=== PATIENT | male | born 1980 | race Caucasian/White ===

== ENCOUNTER 2020-02-08 17:25 | Emergency (ER) | payer BC, SELFPAY ==
[2020-02-08 17:28] VITALS: BP 120/62; PULSE 73; RESP 18; TEMP 37.1; O2SAT 100; BMI 23.3
--- NOTE | 2020-02-08 18:36 | ED_ITS ---
HPI - Wound/Laceration General Chief Complaint: Wound/Laceration Stated Complaint: wound check Time Seen by Provider: 02/08/20 19:35 Source: patient Mode of arrival: ambulatory Limitations: no limitations History of Present Illness HPI narrative: 39-year-old male with no significant past medical history presents with a wound to his right peter. States this started off small a few weeks ago and progressively got worse. He presents because he now has pain in his groin, and the wound is not healing. He does not describe any immunosuppressive diseases or diabetes. He denies chest pain or pressure, palpitations, shortness of breath, abdominal pain, abdominal distention, dysuria, hematuria, loss of sensation to his extremities, fevers and chills. Related Data Previous Rx's Medication Instructions Recorded cephalexin [Keflex] 500 mg PO Q8H 10 Days #30 cap 02/08/20 doxycycline monohydrate 100 mg PO Q12H 10 Days #20 cap 02/08/20 ibuprofen 600 mg PO TID PRN #60 tab 02/08/20 Allergies Allergy/AdvReac Type Severity Reaction Status Date / Time No Known Allergies Allergy Verified 02/08/20 17:33 [No Known Allergies*] Review of Systems Review of Systems: Constitutional: No Fever, No Chills ENT/Mouth: No Ear Pain, No Hoarseness, No sore throat Eyes: No Eye Pain, No Swelling, No Redness, No Foreign Body Cardiovascular: No Chest Pain, No SOB Respiratory: No Cough, No Dyspnea Gastrointestinal: No Nausea, No Vomiting, No Diarrhea, No abdominal Pain Genitourinary: No Dysuria, No Hematuria Musculoskeletal: positive right lower leg pain, No Myalgias, No Joint Swelling Skin: Wound to right lower leg, No Skin lacerations, No rash Neuro: No Weakness, No Numbness, No Paresthesias, No Loss of Consciousness, No Dizziness, No Headache Psych: No Anxiety/Panic, No Depression Heme/Lymph: no easy bruising, no Lymphadenopathy Endocrine: No Polyuria, No Polydipsia Yes all other systems are reviewed and are negative [facility] Past Medical History Attestation statement: The following information was validated with the patient. Social History Social History Advance Directives: No Advance Directives Information Provided: Yes Physical Exam Vital Signs: Vital Signs: Last Vital Signs Temp 98.7 F 02/08/20 17:28 Pulse 73 02/08/20 17:28 Resp 18 02/08/20 17:28 BP 120/62 02/08/20 17:28 Pulse Ox 100 02/08/20 17:28 Body Mass Index 23.3 Appearance: Alert. Oriented X3. Mild distress. Afebrile, appears nontoxic. Eyes: Pupils equal, round and reactive to light. ENT: Pharynx normal. Neck: Normal inspection. Neck supple. CVS: Normal heart rate and rhythm. Pulses normal. Respiratory: No respiratory distress. Breath sounds normal. Abdomen: Soft and nontender. Skin: 3 cm wound with 2 cm circumferential erythema, right inguinal lymphadenopathy and tenderness to palpation, otherwise all other Skin warm and dry. Normal skin color. Normal skin turgor. Extremities: No lower extremity edema. Brisk capillary refill, pulses equal to all extremities, full range of motion to all extremities Neuro: No motor deficit. No sensory deficit. Skin: Other: Course Course Course Narrative: 39-year-old male with no significant past medical history presents with a wound that has progressively worsened over the past several weeks. Does not recall how this wound occurred stated this started out small pinpoint and then progressively enlarged. He does appear altered but denies illicit drug use, alcohol and marijuana use. Plan of care is for CBC, Chem 7, x-ray to exclude bone involvement. We will give some IV Zosyn as he does have some phlebitis and inguinal lymphadenopathy with tenderness. White count is 13.4, x-rays negative for bone involvement, gas or abscess. Lactic acid is negative. Plan of care is to discharge home with Keflex and doxycycline. He does understand that if the wound gets worse that he must return for further care. Patient verbalized understanding of and agrees with plan of care discharge home. Reevaluation(s) Reevaluation #1: Lab values still pending. This [employer] started IV fluids at this time Time: 19:38 MDM - Wound/Laceration Differential Diagnosis Differential diagnosis: Likely abscess Medical Records Attestation: I reviewed the patient's medical records. Lab Data Attestation: I reviewed the patient's lab results. Result diagrams: 02/08/20 19:22 02/08/20 19:22 Labs: Lab Results 12/14/20 12/14/20 12/14/20 Range/Units 19:22 19:22 19:22 WBC 13.4 H (4.8-10.8) X10*3/uL RBC 4.63 (4.60-5.80) X10*6/uL Hgb 14.1 (14.0-18.0) g/dl Hct 43.0 (42-52) % MCV 92.9 (80-98) fL MCH 30.5 (27.0-33.0) pg MCHC 32.8 (31.0-36.0) g/dl RDW 12.9 (11.0-16.0) % Plt Count 382 (160-400) X10*3/uL MPV 10.2 (9.4-12.4) fL Immature Gran % (Auto) 0.2 (0.0-0.4) % Neut % (Auto) 58.1 (45-73) % Lymph % (Auto) 21.4 (20-40) % [place] % (Auto) 9.8 (2-11) % Eos % (Auto) 9.8 H (0-4) % Baso % (Auto) 0.7 (0-2) % Lymph # (Auto) 2.9 (1.2-4.9) X10*3/uL [place] # (Auto) 1.3 H (0.1-1.2) X10*3/uL Eos # (Auto) 1.3 H (0.0-0.4) X10*3/uL Baso # (Auto) 0.1 (0.0-0.2) X10*3/uL Abs Immat Gran (auto) 0.03 (0.00-0.03) X10*3/uL Absolute Neuts (auto) 7.8 (2.0-8.3) X10*3/uL Absolute Nucleated RBC 0.000 (0.0-0.012) X10*3/uL Nucleated RBC % (auto) 0.0 (0.0-0.2) /100WBC Sodium 142 (135-145) mmol/L Potassium 4.7 (3.3-5.1) mmol/l Chloride 105 (96-108) mmol/L Carbon Dioxide 29 (22-29) mmol/L Anion Gap 13 (12-20) BUN 15 (9-16) mg/dL Creatinine 0.94 (0.5-1.4) mg/dL Estim Creat Clear Calc 93.5 Estimated GFR > 60 Random Glucose 91 (60-115) mg/dL Lactic Acid 1.0 (0.5-2.0) mmol/L Calcium 9.0 (8.4-10.2) mg/dL Imaging Data Right tibia x-ray: Attestation: I personally reviewed and interpreted this imaging study as follows: Radiologist's impression: EXAMINATION: XR TIBIA AND FIBULA, RIGHT CLINICAL INFORMATION: Wound COMPARISON: None TECHNIQUE: AP and lateral views of the right tibia and fibula were obtained. FINDINGS: The bones and soft tissues are normal. No soft tissue gas or radiopaque foreign body. No fracture. No osseous lesions. XR/XR tibia fibula RT 2V IMPRESSION: Normal right tibia and fibula. Discharge Plan Discharge Clinical Impression: Cellulitis Qualifiers: Site of cellulitis: extremity Site of cellulitis of extremity: lower extremity Laterality: right Qualified Code(s): L03.115 - Cellulitis of right lower limb Patient Disposition: Home, Self-Care Instructions: Cellulitis (ED) Additional Instructions: You were evaluated for wound on your right lower leg. Please take doxycycline and Keflex as directed. You need both of these medications to fight this infection. For pain management please alternate Tylenol and Motrin. If symptoms get worse or you develop fevers, chills, nausea, vomiting, or any other concerning symptoms please return to the emergency department immediately. Thank you for choosing this emergency department for evaluation. Please follow-up with primary care physician as needed. Return to the emergency department for any new, concerning, or worsening symptoms. Prescriptions: New cephalexin [Keflex] 500 mg capsule 500 mg PO Q8H 10 Days Qty: 30 RF: 0 doxycycline monohydrate 100 mg capsule 100 mg PO Q12H 10 Days Qty: 20 RF: 0 ibuprofen 600 mg tablet 600 mg PO TID PRN (Reason: fever or pain) Qty: 60 RF: 0 Stand Alone Forms: Work/School Release Interventions: ED Discharge Assessment Last Done: 02/08/20 20:51 Discharge Date/Time: 02/08/20 20:52
--- NOTE | 2020-02-08 19:24 | PC.NURSE ---
pT RESTING QUIETLY WITH C/O PAIN TO RIGHT LOWER LEG, 10/04. AWARE. HL PLACED TO [facility], LABS DRAWN TO LAB. PT AWAITING FURTHER ORDERS. PT ALERT, RESPIRATIONS EASY, N/L. SKIN W/D. PT HAS A LARGE RED AREA TO RIGHT LOWER LEG WITH SOME DRAINAGE. BC X 2 AND LACTIC ACID OBTAINED. WILL CONTINUE TO MONITOR PT.
[2020-02-08 19:35] LABS: MANUAL DIFF FLAG NO
[2020-02-08 19:36] LABS: Basophils Absolute Auto 0.1 X10*3/uL (0.0-0.2); Basophils Percent Auto 0.7 % (0-2); Eosinophils Absolute Auto 1.3 X10*3/uL (0.0-0.4); Eosinophils Percent Auto 9.8 % (0-4); Hemoglobin 14.1 g/dl (14.0-18.0); Imm Gran Abs Auto 0.03 X10*3/uL (0.00-0.03); Imm Gran Pct Auto 0.2 % (0.0-0.4); Lymphocytes Absolute Auto 2.9 X10*3/uL (1.2-4.9); Lymphocytes Percent Auto 21.4 % (20-40); Mean Corpuscular HGB Conc 32.8 g/dl (31.0-36.0); Mean Corpuscular Hemoglobin 30.5 pg (27.0-33.0); Mean Corpuscular Volume 92.9 fL (80-98); Mean Platelet Volume 10.2 fL (9.4-12.4); Monocytes Absolute Auto 1.3 X10*3/uL (0.1-1.2); Monocytes Percent Auto 9.8 % (2-11); Neutrophils Absolute Auto 7.8 X10*3/uL (2.0-8.3); Neutrophils Percent Auto 58.1 % (45-73); Platelet Count 382 X10*3/uL (160-400); Red Blood Count 4.63 X10*6/uL (4.60-5.80); Red Cell Distribution Width 12.9 % (11.0-16.0); White Blood Count 13.4 X10*3/uL (4.8-10.8)
[2020-02-08 19:54] LABS: Anion Gap 13 (12-20); Blood Urea Nitrogen 15 mg/dL (9-16); Carbon Dioxide 29 mmol/L (22-29); Chloride 105 mmol/L (96-108); Creatinine Clr Calc Pharmacy 93.5; Estimated Glomerular Filt Rate > 60; Glucose Random 91 mg/dL (60-115); Potassium 4.7 mmol/l (3.3-5.1); Sodium 142 mmol/L (135-145)
[2020-02-08] MEDS: 0.9 % Sodium Chloride 1,000 ML 999 ML IVCONT (19:57)
[2020-02-08] MEDS: Piperacillin Sodium/Tazobactam 3.375 GM in 0.9 % Sodium Chloride 50 ML IV (19:58)
[2020-02-08] MEDS: Acetaminophen 325 MG TABLET 650 MG PO (20:03)
[2020-02-08] MEDS: Ketorolac Tromethamine 30 MG/ML VIAL IVPUSH (20:03)
== END 2020-02-08 20:52 | disposition home or self-care (01) ==
PROVIDERS: Nurse Practitioner Family; Emergency Provider Internal Medicine; PCP Nurse Practitioner Family
DX: L03.115 Cellulitis of right lower limb (principal); R10.30 Lower abdominal pain, unspecified
CPT/HCPCS: 36415; 73590; 80048; 83605; 85025; 87040; 96361; 96374; 96375; 99283; 99284; J1885; J2543

== ENCOUNTER 2020-02-16 16:32 | Emergency (ER) | payer BC, SELFPAY ==
[2020-02-16 17:01] VITALS: BP 136/63; PULSE 67; RESP 65; TEMP 36.9; O2SAT 99; BMI 23.3
== END 2020-02-16 20:10 | disposition left against medical advice (07) ==
PROVIDERS: Emergency Provider Emergency Medicine; PCP Nurse Practitioner Family
DX: M79.606 Pain in leg, unspecified (principal)
CPT/HCPCS: 99282

== ENCOUNTER 2020-02-23 16:30 | Observation (INO) | payer BC, SELFPAY ==
--- NOTE | 2020-02-23 | XR_ITS ---
EXAMINATION: XR TIBIA AND FIBULA, RIGHT CLINICAL INFORMATION: Infection. COMPARISON: None TECHNIQUE: AP and lateral views of the right tibia and fibula were obtained. FINDINGS: The bones and soft tissues are normal. Knee joint and the ankle joint are unremarkable. No fracture. No osseous lesions. No abnormal periosteal reaction. No radiographic evidence for osteomyelitis. There is no foreign body in the soft tissue. There is no air in the soft tissue. XR/XR tibia fibula RT 2V IMPRESSION: Normal right tibia and fibula.
[2020-02-23 16:43] VITALS: BP 135/71; PULSE 67; RESP 16; TEMP 37; O2SAT 100; BMI 23.3
[2020-02-23 20:26] LABS: Basophils Absolute Auto 0.1 X10*3/uL (0.0-0.2); Basophils Percent Auto 0.7 % (0-2); Eosinophils Absolute Auto 0.6 X10*3/uL (0.0-0.4); Eosinophils Percent Auto 6.6 % (0-4); Hematocrit 43.1 % (42-52); Hemoglobin 14.2 g/dl (14.0-18.0); Imm Gran Abs Auto 0.04 X10*3/uL (0.00-0.03); Imm Gran Pct Auto 0.4 % (0.0-0.4); Lymphocytes Absolute Auto 2.9 X10*3/uL (1.2-4.9); Lymphocytes Percent Auto 31.9 % (20-40); MANUAL DIFF FLAG NO; Mean Corpuscular HGB Conc 32.9 g/dl (31.0-36.0); Mean Corpuscular Hemoglobin 30.3 pg (27.0-33.0); Mean Corpuscular Volume 91.9 fL (80-98); Mean Platelet Volume 9.7 fL (9.4-12.4); Monocytes Absolute Auto 0.6 X10*3/uL (0.1-1.2); Monocytes Percent Auto 6.2 % (2-11); Neutrophils Absolute Auto 4.9 X10*3/uL (2.0-8.3); Neutrophils Percent Auto 54.2 % (45-73); Platelet Count 387 X10*3/uL (160-400); Red Blood Count 4.69 X10*6/uL (4.60-5.80); Red Cell Distribution Width 12.4 % (11.0-16.0); White Blood Count 9.1 X10*3/uL (4.8-10.8)
[2020-02-23 20:52] LABS: Lactic Acid 1.4 mmol/L (0.5-2.0)
[2020-02-23 20:55] LABS: Anion Gap 11 (12-20); Blood Urea Nitrogen 13 mg/dL (9-16); Calcium 8.8 mg/dL (8.4-10.2); Carbon Dioxide 28 mmol/L (22-29); Chloride 104 mmol/L (96-108); Creatinine Clr Calc Pharmacy 101.1; Estimated Glomerular Filt Rate > 60; Glucose Random 86 mg/dL (60-115); Potassium 4.1 mmol/l (3.3-5.1); Sodium 139 mmol/L (135-145)
--- NOTE | 2020-02-23 21:27 | ED_ITS ---
HPI - Extremity Problem General Chief complaint: Extremity Problem Stated complaint: leg infection Time Seen by Provider: 02/23/20 21:17 Source: patient Mode of arrival: ambulatory Limitations: no limitations History of Present Illness HPI Narrative: Patient comes emergency room complaining of cellulitis over his right peter. Patient was seen here on February 07, he was prescribed a course of antibiotics of cephalexin and doxycycline. Patient states that the lesion got worse throughout the course of antibiotics and he actually developed a 2nd abscess that just started. Patient states before antibiotics, he was not draining pus from the injury, now he is. Patient complaining of subjective fever and chills. Patient states he was compliant with his antibiotic regimen and did not skip any doses and finished it completely. Patient concerned that the 2nd abscess is starting just as the 1st abscess did. Patient complaining of worsening pain. Patient denies any trauma to the area, denies IV drug use. Related Data Home Medications Medication Instructions Recorded Confirmed ibuprofen 1 tab PO TID PRN 02/23/20 02/23/20 Allergies Allergy/AdvReac Type Severity Reaction Status Date / Time No Known Allergies Allergy Verified 02/08/20 17:33 [No Known Allergies*] Review of Systems Review of Systems: Constitutional : No Weight loss, complaining of chills, subjective fever No Night Sweats, No Fatigue, No Malaise ENT/Mouth : No Hearing loss, No Ear Pain, No Nasal Congestion, No Sinus Pain, No Hoarseness, No sore throat, No Rhinorrhea, No Swallowing Difficulty Eyes: No Eye Pain, No Swelling, No Redness, No Foreign Body, No Discharge, No Vision Changes Cardiovascular : No Chest Pain, No SOB, No Dyspnea on Exertion, No Orthopnea, No Edema, No Palpitations Respiratory : No Cough, No Sputum, No Wheezing, No Smoke Exposure, No Dyspnea Gastrointestinal : No Nausea, No Vomiting, No Diarrhea, No Constipation, No abdominal Pain, No Hematochezia, No Melena Genitourinary : no irregular bleeding, No Dysuria, No Urinary Frequency, No Hematuria, No Urinary Incontinence, No Urgency, No Flank Pain, No Urinary Flow Changes, No Hesitancy Musculoskeletal : No joint pain, No Myalgias, No Joint Swelling Skin : Worsening abscess on the right peter, now and 2nd abscess is developing Neuro : No Weakness, No Numbness, No Paresthesias, No Loss of Consciousness, No Dizziness, No Headache Psych : No Anxiety/Panic, No Depression, No SI/HI/AH/VH, No Social Issues, Heme/Lymph: No Bruising, No Bleeding,No Lymphadenopathy Endocrine : No Polyuria, No Polydipsia, No Temperature Intolerance PMF Past Medical History Medical History No known health problems Social History Social History Advance Directives: No Advance Directives Information Provided: Yes Physical Exam Vital Signs: Vital Signs: Last Vital Signs Temp 98.6 F 02/23/20 16:43 Pulse 67 02/23/20 16:43 Resp 16 02/23/20 16:43 BP 135/71 02/23/20 16:43 Pulse Ox 100 02/23/20 16:43 Body Mass Index 23.3 Appearance: Alert. Oriented X3. No acute distress. Eyes: Pupils equal, round and reactive to light. ENT: Pharynx normal. Neck: Normal inspection. Neck supple. No lymph nodes noted. No crepitus CVS: Normal heart rate and rhythm. Pulses normal. Normal S1 and S2 Respiratory: No respiratory distress. Breath sounds normal. No Wheezing. No rales Abdomen: Soft and nontender. No rigidity. No distention. good BS x4 Skin: Comparing the skin lesion from previous notes, the cellulitis did get worse, now draining pus, the ulcer enlarged, there is now 2nd developing ulcer above the ulcer that appeared 1st. Extremities: No lower extremity edema. No lower extremity edema. No Lacerations. No Rash Neuro: Oriented X 3. No motor deficit. No sensory deficit. Moving all extermities. No slurred speech. Course Course Course Narrative: Sepsis is not suspected at this time. However, patient failed outpatient treatment with 2 antibiotics, the infection is getting worse and is spreading. I discussed the patient with our hospitalist, patient being admitted MDM - Extremity (Nontraumatic) Lab Data Result diagrams: 02/23/20 20:19 02/23/20 20:19 Labs: Lab Results 02/23/20 02/23/20 02/23/20 Range/Units 20:19 20:19 20:19 WBC 9.1 (4.8-10.8) X10*3/uL RBC 4.69 (4.60-5.80) X10*6/uL Hgb 14.2 (14.0-18.0) g/dl Hct 43.1 (42-52) % MCV 91.9 (80-98) fL MCH 30.3 (27.0-33.0) pg MCHC 32.9 (31.0-36.0) g/dl RDW 12.4 (11.0-16.0) % Plt Count 387 (160-400) X10*3/uL MPV 9.7 (9.4-12.4) fL Immature Gran % (Auto) 0.4 (0.0-0.4) % Neut % (Auto) 54.2 (45-73) % Lymph % (Auto) 31.9 (20-40) % [place] % (Auto) 6.2 (2-11) % Eos % (Auto) 6.6 H (0-4) % Baso % (Auto) 0.7 (0-2) % Lymph # (Auto) 2.9 (1.2-4.9) X10*3/uL [place] # (Auto) 0.6 (0.1-1.2) X10*3/uL Eos # (Auto) 0.6 H (0.0-0.4) X10*3/uL Baso # (Auto) 0.1 (0.0-0.2) X10*3/uL Abs Immat Gran (auto) 0.04 H (0.00-0.03) X10*3/uL Absolute Neuts (auto) 4.9 (2.0-8.3) X10*3/uL Absolute Nucleated RBC 0.000 (0.0-0.012) X10*3/uL Nucleated RBC % (auto) 0.0 (0.0-0.2) /100WBC Sodium 139 (135-145) mmol/L Potassium 4.1 (3.3-5.1) mmol/l Chloride 104 (96-108) mmol/L Carbon Dioxide 28 (22-29) mmol/L Anion Gap 11 L (12-20) BUN 13 (9-16) mg/dL Creatinine 0.87 (0.5-1.4) mg/dL Estim Creat Clear Calc 101.1 Estimated GFR > 60 Random Glucose 86 (60-115) mg/dL Lactic Acid 1.4 (0.5-2.0) mmol/L Calcium 8.8 (8.4-10.2) mg/dL Imaging Data Tibia fibula x-ray: Radiologist's impression: The bones and soft tissues are normal. Knee joint and the ankle joint are unremarkable. No fracture. No osseous lesions. No abnormal periosteal reaction. No radiographic evidence for osteomyelitis. There is no foreign body in the soft tissue. There is no air in the soft tissue. XR/XR tibia fibula RT 2V IMPRESSION: Normal right tibia and fibula. Discharge Plan Discharge Clinical Impression: Cellulitis Qualifiers: Site of cellulitis: extremity Site of cellulitis of extremity: lower extremity Laterality: right Qualified Code(s): L03.115 - Cellulitis of right lower limb Patient Disposition: Admitted As Inpatient
[2020-02-23 22:00] VITALS: BP 130/73; PULSE 60; RESP 18; O2SAT 98
--- NOTE | 2020-02-23 22:01 | P.HPHOSP_ITS ---
History of Present Illness Date of Service: 02/23/20 Chief Complaint: Leg wound 39 year old man presented with worsening leg wound. Symptoms began several weeks ago as a red area and got larger. Seen in ED on 02/07 and was given dose of IV antibiotics and then DC with 10 day course of Keflex and Doxycycline. St ates took the entire course and wound is getting worse. Now has another small area superior to original wound. Is intermittently painful and draining pus. No fevers or chills. No trauma to area and no falls or scrapes. Works in warehouse. No history of recurrent skin and soft tissue infections. Review of Systems Review of Systems: Yes all other systems are reviewed and are negative Constitutional: Comments: No fevers/chills. Appetite OK. Cardiovascular: Comments: No chest pain Respiratory: Comments: No dyspnea or cough Gastrointestinal: Comments: No abd pain, nausea, diarrhea Musculoskeletal: Comments: Leg pain with wound Psychiatric: Comments: Normal affect, not anxious [facility] Medical History No known health problems Functional capacity: independent ambulation Pertinent family history: No family history of recurrent skin/soft tissue infections Family history: reviewed and not pertinent Social History (Updated 02/23/20 @ 22:07 by Miquel Peter MD) Smoking Status: Never smoker Use of substances other than those prescribed or required for medical reasons: No Advance Directives: No Advance Directives Information Provided: Yes Meds Allergies Allergy/AdvReac Type Severity Reaction Status Date / Time No Known Allergies Allergy Verified 02/08/20 17:33 [No Known Allergies*] Home Medications Medication Instructions Recorded Confirmed Type ibuprofen 1 tab PO TID PRN 02/23/20 02/23/20 History Physical Exam Vital Signs and Narrative: Vital Signs: Last Vital Signs Temp 98.6 F 02/23/20 16:43 Pulse 67 02/23/20 16:43 Resp 16 02/23/20 16:43 BP 135/71 02/23/20 16:43 Pulse Ox 100 02/23/20 16:43 Body Mass Index 23.3 Const: General: cooperative, healthy appearing, comfortable and no acute distress HENMT: Head: Yes normal to inspection Mouth: Normal oral and palatal mucosa present Eyes: General: appearance normal, both eyes and all related structures Neck: Yes normal visual inspection, Yes no lymphadenopathy and Yes supple Chest: Chest palpation & inspection: normal inspection of the chest Resp: Effort & Inspection: normal respiratory effort and able to speak in complete sentences Auscultation: clear to auscultation bilaterally Cardio: Rate: regular rate Rhythm: regular rhythm Heart sounds: S1 normal heart sound present and S2 normal heart sound present GI: Other: nontender Palpation (GI): Soft to palpation Auscultation: normal bowel sounds Skin: Other: right lower leg anterior peter, area of ulceration with purulence and surrounding erythema. Smaller erythematous area superior to that one. Lesions: lesion noted Results Labs CBC and Chem 7: 02/23/20 20:19 02/23/20 20:19 Labs: Laboratory Results - last 24 hr 02/23/20 02/23/20 02/23/20 20:19 20:19 20:19 MCV 91.9 MCH 30.3 MCHC 32.9 RDW 12.4 Plt Count 387 MPV 9.7 Immature Gran % (Auto) 0.4 Neut % (Auto) 54.2 Lymph % (Auto) 31.9 [place] % (Auto) 6.2 Eos % (Auto) 6.6 H Baso % (Auto) 0.7 Lymph # (Auto) 2.9 [place] # (Auto) 0.6 Eos # (Auto) 0.6 H Baso # (Auto) 0.1 Abs Immat Gran (auto) 0.04 H Absolute Neuts (auto) 4.9 Absolute Nucleated RBC 0.000 Nucleated RBC % (auto) 0.0 Anion Gap 11 L Estim Creat Clear Calc 101.1 Estimated GFR > 60 Random Glucose 86 Lactic Acid 1.4 Calcium 8.8 Imaging Radiologist's Impressions: Impressions Tibia/Fibula X-Ray 02/23/20 00:00 IMPRESSION: Normal right tibia and fibula. Assessment and Plan (1) Cellulitis: Qualifiers: Laterality: right Site of cellulitis: extremity Site of cellulitis of extremity: lower extremity Qualified Code(s): L03.115 - Cellulitis of right lower limb Status: Acute 39 year old man with leg wound and cellulitis worsening after outpatient course of Keflex and Doxyccline. Cellulitis and wound He is not septic. No findings on xray of lower leg. Started on Zosyn and Vancomycin in ED-continue both for now. ID consult with Dr Bhakta ordered. Tylenol scheduled q8 and oxycodone 5mg q6h prn breakthrough pain. DVT proph SC Lovenox ordered Code status Full code.
[2020-02-23] MEDS: Piperacillin Sodium/Tazobactam 3.375 GM in 0.9 % Sodium Chloride 50 ML IV (23:01)
[2020-02-23 23:10] LABS: COVID-19 Test Negative (Negative)
[2020-02-23] MEDS: vancomycin HCL 1,000 MG in 0.9 % Sodium Chloride 250 ML 270 MG IV (23:39)
[2020-02-23] MEDS: Acetaminophen 325 MG TABLET 650 MG PO (23:44)
[2020-02-24] VITALS: BP 119/72; PULSE 50; RESP 16; TEMP 36.3; O2SAT 100
[2020-02-24] MEDS: oxyCODONE HCl Immed Release 5 MG TABLET PO ×4 (00:32→21:12)
[2020-02-24] MEDS: 0.9 % Sodium Chloride Flush 3 ML SYRINGE IVFLUSH ×4 (00:33→21:14)
[2020-02-24] MEDS: Piperacillin Sodium/Tazobactam 3.375 GM in 0.9 % Sodium Chloride 50 ML IV ×4 (05:41→23:50)
[2020-02-24 06:45] LABS: MANUAL DIFF FLAG NO
[2020-02-24 07:00] LABS: Basophils Absolute Auto 0.1 X10*3/uL (0.0-0.2); Basophils Percent Auto 0.7 % (0-2); Eosinophils Absolute Auto 0.8 X10*3/uL (0.0-0.4); Eosinophils Percent Auto 9.8 % (0-4); Hematocrit 38.8 % (42-52); Hemoglobin 12.6 g/dl (14.0-18.0); Imm Gran Abs Auto 0.03 X10*3/uL (0.00-0.03); Imm Gran Pct Auto 0.3 % (0.0-0.4); Lymphocytes Absolute Auto 3.3 X10*3/uL (1.2-4.9); Lymphocytes Percent Auto 38.8 % (20-40); Mean Corpuscular HGB Conc 32.5 g/dl (31.0-36.0); Mean Corpuscular Hemoglobin 29.9 pg (27.0-33.0); Mean Corpuscular Volume 92.2 fL (80-98); Mean Platelet Volume 10.1 fL (9.4-12.4); Monocytes Absolute Auto 0.8 X10*3/uL (0.1-1.2); Monocytes Percent Auto 9.5 % (2-11); Neutrophils Absolute Auto 3.5 X10*3/uL (2.0-8.3); Neutrophils Percent Auto 40.9 % (45-73); Platelet Count 355 X10*3/uL (160-400); Red Blood Count 4.21 X10*6/uL (4.60-5.80); Red Cell Distribution Width 12.4 % (11.0-16.0); White Blood Count 8.6 X10*3/uL (4.8-10.8)
[2020-02-24 07:16] LABS: Anion Gap 12 (12-20); Blood Urea Nitrogen 14 mg/dL (9-16); Calcium 8.3 mg/dL (8.4-10.2); Carbon Dioxide 27 mmol/L (22-29); Chloride 105 mmol/L (96-108); Creatinine Clr Calc Pharmacy 99.9; Estimated Glomerular Filt Rate > 60; Glucose Random 84 mg/dL (60-115); Potassium 4.2 mmol/l (3.3-5.1); Sodium 140 mmol/L (135-145)
[2020-02-24 07:42] VITALS: BP 119/66; PULSE 51; RESP 20; TEMP 36.4; O2SAT 99
[2020-02-24] MEDS: Acetaminophen 325 MG TABLET 650 MG PO ×3 (07:45→21:13)
--- NOTE | 2020-02-24 08:33 | MHC.CM.PN ---
PATIENT IS FULLY INDEPENDENT WITH ALLS CAR IS IN LOT. PATIENT MAY REQUIRE A RETURN TO WORK NOTE. \HE IS WILLING TO COMPLETE A HCP, ASSIGNING HIS FATHER (YVETTE) AGENT. COPY NOW IN CHART. CASE MANAGEMENT FOLLOWING FOR ANY DISCHARGE NEEDS. LEWIS 02/23 IN CHART
[2020-02-24] MEDS: vancomycin HCL 1,000 MG in 0.9 % Sodium Chloride 250 ML 270 MG IV ×2 (09:20→21:13)
[2020-02-24 11:22] VITALS: BP 98/52; PULSE 55; RESP 20; TEMP 36.6; O2SAT 98
--- NOTE | 2020-02-24 13:36 | MHC.CM.PN ---
NO PLAN FOR DISCHARGE. IV ABX TREATMENT CASE MANAGEMENT FOLLOWING
[2020-02-24 15:37] VITALS: BP 112/60; PULSE 58; RESP 18; TEMP 36.8; O2SAT 98
--- NOTE | 2020-02-24 15:55 | HO.PM.IMPN ---
Subjective Subjective Date of Service: 02/24/20 Interval History: Patient being followed for left leg wound and cellulitis, since admission no fever chills no other acute issues patient denies nausea vomiting. Review of Systems General no headache, no dizziness, no fever chills. CVS no chest pain, no palpitation. Respiratory no cough, no sputum production, no respiratory distress. Gastrointestinal no nausea, no vomiting, no abdominal pain Physical Exam Vital Signs: Vital Signs: Last Vital Signs Temp 98.2 F 02/24/20 15:37 Pulse 58 02/24/20 15:37 Resp 18 02/24/20 15:37 BP 112/60 02/24/20 15:37 Pulse Ox 98 02/24/20 15:37 Body Mass Index 23.3 General patient resting comfortably in no acute distress. Neck is supple no JVD. CVS regular rate rhythm, Respiratory lungs clear to auscultation, no respiratory distress Gastrointestinal abdomen soft, nontender, bowel sounds audible Extremities right lower extremity 2 areas of ulceration with mild erythema, with no surrounding induration, or drainage Neuro nonfocal patient moving all 4 extremity speech clear. Skin no rash Objective Data Current Medications Generic Name Dose Route Start Last Admin Trade Name Freq PRN Reason Stop Dose Admin Acetaminophen 650 mg 02/23/20 23:53 02/24/20 15:01 Acetaminophen 325 Mg Tablet PO 650 mg TID SERGEI Administration Enoxaparin Sodium 40 mg 02/24/20 01:00 02/24/20 00:34 Enoxaparin Sodium 40 Mg/0.4 Ml Syringe SUBCUT Not Given Q24H SERGEI Vancomycin HCl 1,000 mg/ 270 mls @ 270 mls/hr 02/24/20 10:00 02/24/20 10:26 Sodium Chloride IV Infused Q12H SERGEI Infusion Piperacillin Sod/Tazobactam 50 mls @ 100 mls/hr 02/24/20 06:00 02/24/20 12:11 Sod 3.375 gm/ Sodium Chloride IV Infused RQ6H SERGEI Infusion Oxycodone HCl 5 mg 02/23/20 23:53 02/24/20 15:00 Oxycodone Hcl Immed Release 5 Mg Tablet PO 5 mg Q6H PRN Administration Pain, Severe (Pain Scale 7-10) Pharmacy Consult 1 each 02/23/20 21:24 Consult Rx Vancomycin Dosing MISCELLANE DAILY PRN Consult order Pharmacy Consult 1 each 02/23/20 21:25 Consult Rx Perform Med Rec MISCELLANE ONCE PRN Consult order Sodium Chloride 3 ml 02/24/20 00:00 02/24/20 15:02 0.9 % Sodium Chloride Flush 3 Ml Syringe IVFLUSH 3 ml QSHIFT SERGEI Administration Labs CBC & Chem 7: 02/24/20 06:13 02/24/20 06:13 Assessment and Plan (1) Cellulitis: Status: Acute Assessment and Plan: 39 year old man with leg wound and cellulitis worsening after outpatient course of Keflex and Doxyccline. Right lower extremity Cellulitis and wound no sepsis No fevers no chills normal WBC, No findings on xray of lower leg. Continue iv Zosyn and Vancomycin day 1 Follow blood cultures if negative will discharge patient on by mouth Augmentin case discussed with ID, continue Tylenol scheduled and oxycodone 5mg q6h prn breakthrough pain. DVT proph SC Lovenox Code status Full code.
--- NOTE | 2020-02-24 16:32 | W.PM.IDCN ---
History of Present Illness Data of Consult Service Date: 02/24/20 Primary Care Provider: Perico Mccall, [facility]- HPI Reason for consult: reddened right leg He presents to hospital with right lower extremity redness and swelling for two weeks He has no fever or chills He has injected heroin into leg area He says he was give po Keflex and Doxycycline on 02/07 and no improvement He claims area draining pus Review of Systems Review of Systems: Yes all other systems are reviewed and are negative [facility] Past Medical History Medical History No known health problems Functional capacity: independent ambulation Family History Family history: reviewed and not pertinent Social History Social History Smoking Status: Never smoker Use of substances other than those prescribed or required for medical reasons: No Advance Directives: No Advance Directives Information Provided: Yes service: No Current occupational status: employed Meds Allergies Allergy/AdvReac Type Severity Reaction Status Date / Time No Known Allergies Allergy Verified 02/08/20 17:33 [No Known Allergies*] Home Medications Medication Instructions Recorded Confirmed Type ibuprofen 1 tab PO TID PRN 02/23/20 02/23/20 History Physical Exam Vital Signs: Vital Signs: Last Vital Signs Temp 98.2 F 02/24/20 15:37 Pulse 58 02/24/20 15:37 Resp 18 02/24/20 15:37 BP 112/60 02/24/20 15:37 Pulse Ox 98 02/24/20 15:37 Body Mass Index 23.3 Const: General: cooperative HENMT: Head: Yes normal to inspection Mouth: Normal oral and palatal mucosa present Resp: Effort & Inspection: normal respiratory effort Cardio: Rate: regular rate Rhythm: regular rhythm GI: Inspection: Yes normal to inspection Skin: General skin exam: no rashes or lesions noted Extrem: Other: as above picture right leg Assessment and Plan (1) Cellulitis: Qualifiers: Laterality: right Site of cellulitis: extremity Site of cellulitis of extremity: lower extremity Qualified Code(s): L03.115 - Cellulitis of right lower limb Problem details: Really minor abrasion type areas on right peter with no purulence or fever or systemic toxicities Has trauma to area Status: Acute Stop IV antibiotics in am and give po Augmentin 875 mg po bid for a week Local Bacitracin and wash area daily,no scrubbing Results Labs CBC & Chem 7: 02/24/20 06:13 02/24/20 06:13 Labs: Short CBC 02/23/20 02/24/20 Range/Units 20:19 06:13 WBC 9.1 8.6 (4.8-10.8) X10*3/uL Hgb 14.2 12.6 L (14.0-18.0) g/dl Hct 43.1 38.8 L (42-52) % Plt Count 387 355 (160-400) X10*3/uL BMP 02/23/20 02/24/20 20:19 06:13 Sodium 139 140 Potassium 4.1 4.2 Chloride 104 105 Carbon Dioxide 28 27 BUN 13 14 Creatinine 0.87 0.88 Calcium 8.8 8.3 L
[2020-02-24 23:25] VITALS: BP 107/56; PULSE 54; RESP 18; TEMP 36.8; O2SAT 96
[2020-02-25] MEDS: Piperacillin Sodium/Tazobactam 3.375 GM in 0.9 % Sodium Chloride 50 ML IV ×2 (06:10→10:24)
[2020-02-25] MEDS: oxyCODONE HCl Immed Release 5 MG TABLET PO (06:14)
[2020-02-25] MEDS: Acetaminophen 325 MG TABLET 650 MG PO (06:15)
[2020-02-25] MEDS: 0.9 % Sodium Chloride Flush 3 ML SYRINGE IVFLUSH (07:20)
[2020-02-25 07:21] VITALS: BP 104/58; PULSE 63; RESP 15; TEMP 36.3; O2SAT 98
[2020-02-25 09:27] LABS: Vancomycin Trough 7.7 mcg/mL (10.0-20.0)
--- NOTE | 2020-02-25 10:57 | MHC.CM.PN ---
PATIENT IS DISCHARGED HOME - SELF CARE. RN AWARE OF PLAN. CAR [facility] ON [facility].
--- NOTE | 2020-02-25 12:24 | P.DS_ITS ---
DS: Providers Provider Date of admission: 02/23/20 22:00 Primary care physician: GENET Cortes- Consults: 02/23/20 23:53 Consult to Infectious Diseases Routine Consulting Provider: Yaquelin Bhakta Reason for consultation: lower leg wound and cellulitis, failed outpatient antibiotics Has provider been notified: No DS: Diagnosis Discharge Diagnosis (1) Cellulitis: Status: Acute DS: Medications Discharge Medications Home Medications: Previous Rx's Medication Instructions Recorded amoxicillin-pot clavulanate 1 tab PO BID #14 tab 02/25/20 [Augmentin] DS: Summary Hospital Course Hospital Course: History of presenting illness Chief Complaint: Leg wound 39 year old man presented with worsening leg wound. Symptoms began several weeks ago as a red area and got larger. Seen in ED on 02/07 and was given dose of IV antibiotics and then DC with 10 day course of Keflex and Doxycycline. States took the entire course and wound is getting worse. Now has another small area superior to original wound. Is intermittently painful and draining pus. No fevers or chills. No trauma to area and no falls or scrapes. Works in [id number]. No history of recurrent skin and soft tissue infections. Hospital course 39 year old man with leg wound and cellulitis worsening after outpatient course of Keflex and Doxyccline. Right lower extremity Cellulitis and wound, no sepsis Patient admitted to medical floor and treated with IV vancomycin and Zosyn, patient had No fevers, no chills, had normal WBC, blood culture showed no growth, patient evaluated by Infectious Disease she is recommending by mouth Augmentin 875 b.i.d. for 7 days,patient has been advised to keep leg elevated, apply bacitracin ointment to wound twice daily and to use Tylenol for pain. Time Spent with Patient Time attestation: Total time spent providing and/or coordinating discharge services: Physical Exam Vital Signs: Vital Signs: Last Vital Signs Temp 97.4 F 02/25/20 07:21 Pulse 63 02/25/20 07:21 Resp 15 02/25/20 07:21 BP 104/58 L 02/25/20 07:21 Pulse Ox 98 02/25/20 07:21 Body Mass Index 23.3 General patient resting comfortably in no acute distress. Neck is supple no JVD. CVS regular rate rhythm, Respiratory lungs clear to auscultation, no respiratory distress Gastrointestinal abdomen soft, nontender, bowel sounds audible. Extremities right lower extremity with 2 areas of ulceration with no significant redness, no induration or drainage. Neuro nonfocal. Skin no rash DS: Data Data Completed and Pending Labs on day of discharge: 02/23/20 XR tibia fibula RT 2V Stat 02/23/20 20:19 BMP [Basic Metabolic Panel] Stat CBC W/AUTO DIFF [Complete Blood Count Auto Diff] Stat Lactic Acid Stat 02/23/20 21:24 Consult Rx Vancomycin Dosing 1 each MISCELLANE DAILY PRN Piperacillin Sodium/Tazobactam [Zosyn] 3.375 gm 0.9 % Sodium Chloride [Ns] 50 ml IV ONCE vancomycin HCL 1,000 mg 0.9 % Sodium Chloride [Ns] 250 ml IV ONCE 02/23/20 21:25 Consult Rx Perform Med Rec 1 each MISCELLANE ONCE PRN 02/23/20 21:52 Transfer Order Routine 02/23/20 21:53 Code Status Routine 02/23/20 22:41 COVID-19 ID NOW (Sommer) Stat 02/23/20 22:50 vancomycin HCL 1,000 mg .ROUTE .STK-MED ONE 02/23/20 22:51 Piperacillin Sodium/Tazobactam [Zosyn] 3.375 gm IV .STK-MED ONE 02/23/20 23:33 Acetaminophen [Tylenol] 650 mg PO ONCE ONE 02/23/20 23:53 Acetaminophen [Tylenol] 650 mg PO TID oxyCODONE HCl Immed Release [Roxicodone] 5 mg PO Q6H PRN 02/23/20 23:53 Ambulate QSHIFT WHILE AWAKE IV insert/maintain Q4HR Intake and Output QSHIFTE Vital Signs QSHIFT 02/24/20 00:00 0.9 % Sodium Chloride Flush [NS Flush] 3 ml IVFLUSH QSHIFT 02/24/20 01:00 Enoxaparin Sodium [Lovenox] 40 mg SUBCUT Q24H 02/24/20 05:30 Piperacillin Sodium/Tazobactam [Zosyn] 3.375 gm IV .STK-MED ONE 02/24/20 06:00 Piperacillin Sodium/Tazobactam [Zosyn] 3.375 gm 0.9 % Sodium Chloride [Ns] 50 ml IV RQ6H 02/24/20 06:13 Basic Metabolic Panel Routine Complete Blood Count Auto Diff Routine 02/24/20 09:11 vancomycin HCL 1,000 mg .ROUTE .STK-MED ONE 02/24/20 10:00 vancomycin HCL 1,000 mg 0.9 % Sodium Chloride [Ns] 250 ml IV Q12H 02/24/20 11:29 Piperacillin Sodium/Tazobactam [Zosyn] 3.375 gm IV .STK-MED ONE 02/24/20 17:33 Piperacillin Sodium/Tazobactam [Zosyn] 3.375 gm IV .STK-MED ONE 02/24/20 21:01 vancomycin HCL 1,000 mg .ROUTE .STK-MED ONE 02/24/20 21:08 vancomycin HCL 1,000 mg .ROUTE .STK-MED ONE 02/24/20 23:37 Piperacillin Sodium/Tazobactam [Zosyn] 3.375 gm IV .STK-MED ONE 02/25/20 05:56 Piperacillin Sodium/Tazobactam [Zosyn] 3.375 gm IV .STK-MED ONE 02/25/20 08:46 Vancomycin Trough Stat 02/25/20 10:20 Piperacillin Sodium/Tazobactam [Zosyn] 3.375 gm IV .STK-MED ONE Laboratory Last Values WBC 8.6 X10*3/uL (4.8-10.8) 02/24/20 06:13 RBC 4.21 X10*6/uL (4.60-5.80) L 02/24/20 06:13 Hgb 12.6 g/dl (14.0-18.0) L 02/24/20 06:13 Hct 38.8 % (42-52) L 02/24/20 06:13 MCV 92.2 fL (80-98) 02/24/20 06:13 MCH 29.9 pg (27.0-33.0) 02/24/20 06:13 MCHC 32.5 g/dl (31.0-36.0) 02/24/20 06:13 RDW 12.4 % (11.0-16.0) 02/24/20 06:13 Plt Count 355 X10*3/uL (160-400) 02/24/20 06:13 MPV 10.1 fL (9.4-12.4) 02/24/20 06:13 Immature Gran % (Auto) 0.3 % (0.0-0.4) 02/24/20 06:13 Neut % (Auto) 40.9 % (45-73) L 02/24/20 06:13 Lymph % (Auto) 38.8 % (20-40) 02/24/20 06:13 Prentiss % (Auto) 9.5 % (2-11) 02/24/20 06:13 Eos % (Auto) 9.8 % (0-4) H 02/24/20 06:13 Baso % (Auto) 0.7 % (0-2) 02/24/20 06:13 Lymph # (Auto) 3.3 X10*3/uL (1.2-4.9) 02/24/20 06:13 Prentiss # (Auto) 0.8 X10*3/uL (0.1-1.2) 02/24/20 06:13 Eos # (Auto) 0.8 X10*3/uL (0.0-0.4) H 02/24/20 06:13 Baso # (Auto) 0.1 X10*3/uL (0.0-0.2) 02/24/20 06:13 Abs Immat Gran (auto) 0.03 X10*3/uL (0.00-0.03) 02/24/20 06:13 Absolute Neuts (auto) 3.5 X10*3/uL (2.0-8.3) 02/24/20 06:13 Absolute Nucleated RBC 0.000 X10*3/uL (0.0-0.012) 02/24/20 06:13 Nucleated RBC % (auto) 0.0 /100WBC (0.0-0.2) 02/24/20 06:13 Sodium 140 mmol/L (135-145) 02/24/20 06:13 Potassium 4.2 mmol/l (3.3-5.1) 02/24/20 06:13 Chloride 105 mmol/L (96-108) 02/24/20 06:13 Carbon Dioxide 27 mmol/L (22-29) 02/24/20 06:13 Anion Gap 12 (02-13) 02/24/20 06:13 BUN 14 mg/dL (9-16) 02/24/20 06:13 Creatinine 0.88 mg/dL (0.5-1.4) 02/24/20 06:13 Estim Creat Clear Calc 99.9 02/24/20 06:13 Estimated GFR > 60 02/24/20 06:13 Random Glucose 84 mg/dL (60-115) 02/24/20 06:13 Lactic Acid 1.4 mmol/L (0.5-2.0) 02/23/20 20:19 Calcium 8.3 mg/dL (8.4-10.2) L 02/24/20 06:13 Vancomycin Trough 7.7 mcg/mL (10.0-20.0) L 02/25/20 08:46 COVID-19 (CHELSY) Negative (Negative) 02/23/20 22:41 COVID-19 Clin Com See Note 02/23/20 22:41 Preliminary micro results at discharge 02/23/20 22:41 Blood Culture - Preliminary Blood - Venous No growth after 24 hours. 02/23/20 22:41 Blood Culture - Preliminary Blood - Venous No growth after 24 hours. 02/23/20 20:20 Blood Culture - Preliminary Blood - Venous No growth after 24 hours. 02/23/20 20:19 Blood Culture - Preliminary Blood - Venous No growth after 24 hours. Discharge Plan Discharge Patient Disposition: Home, Self-Care Referrals: Perico Mccall, [employer] [facility] [Primary Care Provider] - Discharge Medications: New amoxicillin-pot clavulanate [Augmentin] 875-125 mg tablet 1 tab PO BID Qty: 14 RF: 0 Discontinued ibuprofen 600 mg tablet 1 tab PO TID PRN (Reason: fever) RF: 0 Discharge Orders: Discharge Order (Routine); Ordered 02/25/20 Ordered By: Rupal Marti Diet: regular diet Activity on Discharge: As tolerated Discharge Date/Time: 02/25/20 11:21 Visit Report Forms: Patient Portal Discharge page Care Plan Goals: Take Tylenol 500 mg every 6 hours as needed for pain apply bacitracin ointment to right leg wounds twice daily, keep leg elevated Health Concerns: Right leg wound healing. Plan of Treatment: Follow-up with primary care physician
== END 2020-02-25 11:21 | disposition home or self-care (01) ==
LOC: HO.ED 22:02 → HO.S3 23:28
PROVIDERS: Admitting Provider Internal Medicine; Emergency Provider Emergency Medicine; PCP Nurse Practitioner Family; Visit Provider Hospitalist
DX: L03.115 Cellulitis of right lower limb (principal); R60.0 Localized edema; Z20.828 Contact with and (suspected) exposure to other viral communicable diseases; Z79.1 Long term (current) use of non-steroidal anti-inflammatories (NSAID); Z79.899 Other long term (current) drug therapy
CPT/HCPCS: 36415; 73590; 80048; 80202; 83605; 85025; 87040; 87635; 96365; 96366; 96367; 96372; 99218; 99285; J2543; J3370

== ENCOUNTER 2022-06-11 22:39 | Emergency (ER) | payer OTHER, SELFPAY ==
--- NOTE | ~2022-06-11 | XR_ITS ---
EXAMINATION: XR ELBOW, LEFT CLINICAL INFORMATION: Pain COMPARISON: None available. TECHNIQUE: AP, lateral, and oblique views of the left elbow. FINDINGS: Osseous alignment is anatomic. No acute fracture is seen. Mild dorsal soft tissue swelling. No appreciable joint effusion. XR/XR elbow LT min 3V IMPRESSION: Mild dorsal soft tissue swelling without acute osseous findings.
--- NOTE | ~2022-06-11 | XR_ITS ---
EXAMINATION: XR HAND, LEFT CLINICAL INFORMATION: Left hand pain COMPARISON: None available. TECHNIQUE: PA, lateral, and oblique views of the left hand. FINDINGS: The bones and soft tissues are normal. No fracture. Alignment is anatomic. Joint spaces are maintained. No erosions or soft tissue calcifications. XR/XR hand LT min 3V IMPRESSION: Normal left hand.
[2022-06-11 23:14] VITALS: BP 100/62; BP 103/66; PULSE 69; PULSE 72; RESP 18; TEMP 36.9; O2SAT 98; BMI 26.6
--- NOTE | 2022-06-12 01:06 | ED_ITS ---
HPI - Extremity Problem General Chief complaint: Extremity Injury, Upper Stated complaint: fall r elbow pain Time Seen by Provider: 06/12/22 00:20 Source: patient and EMS Mode of arrival: EMS Limitations: no limitations History of Present Illness HPI Narrative: Patient comes emergency room from [facility]. Earlier today, patient was sitting in a chair and fell backwards. Patient states that he stretched out his hand backwards to break the fall. Patient complaining of pain around his left thumb area and around his left elbow. Patient states that he did not hit his head, did not lose consciousness. Patient denies any other injury Related Data Previous Rx's Medication Instructions Recorded amoxicillin 875 mg-potassium 1 tab PO BID #14 tabs 02/25/20 clavulanate 125 mg tablet (Augmentin) ibuprofen 600 mg tablet 600 mg PO Q8H PRN fever or pain 06/12/22 #10 tabs Allergies Allergy/AdvReac Type Severity Reaction Status Date / Time No Known Allergies Allergy Verified 06/11/22 23:20 [No Known Allergies*] Review of Systems Review of Systems: Constitutional : No Weight loss, No Fever, No Chills, No Night Sweats, No Fatigue, No Malaise ENT/Mouth : No Hearing loss, No Ear Pain, No Nasal Congestion, No Sinus Pain, No Hoarseness, No sore throat, No Rhinorrhea, No Swallowing Difficulty Eyes: No Eye Pain, No Swelling, No Redness, No Foreign Body, No Discharge, No Vision Changes Cardiovascular : No Chest Pain, No SOB, No Dyspnea on Exertion, No Orthopnea, No Edema, No Palpitations Respiratory : No Cough, No Sputum, No Wheezing, No Smoke Exposure, No Dyspnea Gastrointestinal : No Nausea, No Vomiting, No Diarrhea, No Constipation, No abdominal Pain, No Hematochezia, No Melena Genitourinary : no irregular bleeding, No Dysuria, No Urinary Frequency, No Hematuria, No Urinary Incontinence, No Urgency, No Flank Pain, No Urinary Flow Changes, No Hesitancy Musculoskeletal : Pain to palpation over the left thumb and left elbow Skin : No Skin Lesions, No rash Neuro : No Weakness, No Numbness, No Paresthesias, No Loss of Consciousness, No Dizziness, No Headache Psych : No Anxiety/Panic, No Depression, No SI/HI/AH/VH, No Social Issues, Heme/Lymph: No Bruising, No Bleeding,No Lymphadenopathy Endocrine : No Polyuria, No Polydipsia, No Temperature Intolerance [facility] Past Medical History Medical History Cocaine use Heroin use No known health problems Suicidal ideation Social History Social History Advance Directives: No Advance Directives Information Provided: Yes service: No Current occupational status: employed Physical Exam Vital Signs: Vital Signs: Last Vital Signs Temp 98.4 F 06/11/22 23:14 Pulse 69 06/11/22 23:14 Resp 18 06/11/22 23:14 BP 103/66 06/11/22 23:14 Pulse Ox 98 06/11/22 23:14 O2 Del Method Room Air 06/11/22 23:14 BMI result Body Mass Index 26.6 Const: Other: Appearance: Alert. Oriented X3. No acute distress. Eyes: Pupils equal, round and reactive to light. ENT: Pharynx normal. Neck: Normal inspection. Neck supple. No lymph nodes noted. No crepitus CVS: Normal heart rate and rhythm. Pulses normal. Normal S1 and S2 Respiratory: No respiratory distress. Breath sounds normal. No Wheezing. No rales Abdomen: Soft and nontender. No rigidity. No distention. Skin: Skin warm and dry. Normal skin color. Normal skin turgor. Extremities: No lower extremity edema. Patient has pain to palpation over the snuffbox on the left hand.? Patient is able to flex and extend all fingers but hurts doing so.? No wrist pain.? Left elbow is slightly swollen.? Patient able to flex and extend.? Small effusion present. Neuro: Oriented X 3. No motor deficit. No sensory deficit. Moving all ext remities. No slurred speech. CN 2 through 12 grossly intact Psych: calm, cooperative, normal affect Medical Decision Making Medical Decision Making MDM Narrative: -my interpretation of x-rays: patient's hand x-ray and elbow x-ray do not show any acute abnormality. No fracture were seen. -patient was given p.o. ibuprofen. -patient was provided with a thumb spica, instructed to follow-up with orthopedics Differential Diagnosis Differential Diagnoses: The differential diagnosis associated with the presentation includes (Thumb sprain, thumb contusion, scaphoid fracture,. Elbow contusion versus fracture, joint effusion) Radiology Impression Discussion of test interpretation with radiology: I have reviewed the radiologist's reading. Radiologist Impression: The bones and soft tissues are normal. No fracture. Alignment is anatomic. Joint spaces are maintained. No erosions or soft tissue calcifications.? XR/XR hand LT min 3V IMPRESSION: Normal left hand. FINDINGS: Osseous alignment is anatomic. No acute fracture is seen. Mild dorsal soft tissue swelling. No appreciable joint effusion.? XR/XR elbow LT min 3V IMPRESSION: Mild dorsal soft tissue swelling without acute osseous findings. Discharge Plan Discharge Clinical Impression: Contusion of left thumb, Contusion of left elbow Patient Disposition: Home, Self-Care Instructions: Contusion in Adults (ED) Additional Instructions: Please follow-up with your primary care physician tomorrow. If you have any worsening or new symptoms, please return to the emergency room or call 911 Prescriptions: New ibuprofen 600 mg tablet 600 mg PO Q8H PRN (Reason: fever or pain) Qty: 10 0RF No Action amoxicillin-pot clavulanate [Augmentin] 875-125 mg tablet 1 tab PO BID Qty: 14 0RF Referrals: Elina Mishra MD [Physician] - 06/13/22
[2022-06-12] MEDS: Ibuprofen 600 MG TABLET PO (01:44)
[2022-06-12 02:48] VITALS: RESP 20
== END 2022-06-12 02:51 | disposition home or self-care (01) ==
PROVIDERS: Emergency Provider Emergency Medicine
DX: S60.012A Contusion of left thumb without damage to nail, initial encounter (principal); S50.02XA Contusion of left elbow, initial encounter; W07.XXXA Fall from chair, initial encounter; Y93.89 Activity, other specified; Y92.199 Unspecified place in other specified residential institution as the place of occurrence of the external cause; Y99.9 Unspecified external cause status
CPT/HCPCS: 29130; 73080; 73130; 99283; 99284

== ENCOUNTER 2024-02-12 16:49 | Inpatient (IN) | payer OTHER, SELFPAY ==
--- NOTE | ~2024-02-12 | XR_ITS ---
EXAMINATION: XR CHEST CLINICAL INFORMATION: Dyspnea. COMPARISON: None available. TECHNIQUE: Frontal view of the chest was obtained. FINDINGS: The lungs are adequately expanded. Mild asymmetric elevation of the right hemidiaphragm. Faint hazy opacification of the right lung base. No additional dense focal consolidative process. No evidence of pleural effusion, pulmonary edema, or pneumothorax. The cardiomediastinal silhouette is within normal limits. No acute osseous abnormalities. XR/XR chest 1V IMPRESSION: Faint hazy opacification of the right lung base may represent subsegmental atelectasis although early infectious/inflammatory processes could have a similar appearance in the appropriate clinical setting. No additional dense focal consolidative process. Electronically signed by: James Hauser DO 02/12/2024 07:15 PM [facility]
[2024-02-12 16:59] VITALS: BP 104/61; BP 134/80; PULSE 113; PULSE 87; RESP 14; O2SAT 86; O2SAT 94; BMI 31.7
--- NOTE | 2024-02-12 17:12 | ECG_ITS ---
Test Reason : OD Blood Pressure : / mmHG Vent. Rate : 076 BPM Atrial Rate : 076 BPM P-R Int : 144 ms QRS Dur : 096 ms QT Int : 416 ms P-R-T Axes : 017 056 049 degrees QTc Int : 468 ms Normal sinus rhythm Normal ECG No previous ECGs available Referred By: Kay Aguillon Electronically Signed By:DEE DEE YUAN
[2024-02-12 17:18] VITALS: O2SAT 96
[2024-02-12] MEDS: Ondansetron ODT 4 MG TAB.RAPDIS TRANSLINGU (17:21)
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
[2024-02-12 17:42] VITALS: RESP 13; O2SAT 93
[2024-02-12 17:46] LABS: MANUAL DIFF FLAG NO
[2024-02-12 17:50] LABS: Basophils Percent Auto 0.2 % (0-2); Eosinophils Absolute Auto 0.3 X10*3/uL (0.0-0.4); Eosinophils Percent Auto 1.5 % (0-4); Hematocrit 41.4 % (42.0-52.0); Hemoglobin 14.2 g/dl (14.0-18.0); Imm Gran Abs Auto 0.09 X10*3/uL (0.00-0.03); Imm Gran Pct Auto 0.5 % (0.0-0.4); Lymphocytes Absolute Auto 1.5 X10*3/uL (1.2-4.9); Lymphocytes Percent Auto 8.4 % (20-40); Mean Corpuscular HGB Conc 34.3 g/dl (31.0-36.0); Mean Corpuscular Hemoglobin 30.1 pg (27.0-33.0); Mean Corpuscular Volume 87.9 fL (80.0-98.0); Mean Platelet Volume 10.2 fL (9.4-12.4); Monocytes Absolute Auto 0.7 X10*3/uL (0.1-1.2); Neutrophils Absolute Auto 15.1 x10*3/uL (2.0-8.3); Neutrophils Percent Auto 85.4 % (45-73); Platelet Count 357 X10*3/uL (160-400); Red Blood Count 4.71 X10*6/uL (4.60-5.80); Red Cell Distribution Width 12.4 % (11.0-16.0); White Blood Count 17.7 X10*3/uL (4.8-10.8)
[2024-02-12 17:50] LABS: Carbon Monoxide Refer to POC result
[2024-02-12 17:50] LABS: Carbon Monoxide POC 4.2 %
[2024-02-12 18:07] LABS: Lactic Acid 1.7 mmol/L (0.5-2.0)
[2024-02-12 18:08] LABS: Alanine Aminotransferase 20 U/L (0-40); Albumin Level 4.1 g/dL (3.5-5.0); Alkaline Phosphatase 73 U/L (39-117); Anion Gap 10 (12-20); Aspartate Amino Transferase 20 U/L (5-37); Bilirubin Direct 0.2 mg/dL (0.0-0.5); Bilirubin Total 0.7 mg/dL (0.0-1.0); Blood Urea Nitrogen 19 mg/dL (9-16); Calcium 9.5 mg/dL (8.4-10.2); Carbon Dioxide 28 mmol/L (22-29); Chloride 107 mmol/L (96-108); Creatinine Clr Calc Pharmacy 102.3; Estimated Glomerular Filt Rate > 60; Glucose Random 132 mg/dL (60-115); Magnesium 2.5 mg/dL (1.6-2.6); Potassium 3.1 mmol/L (3.3-5.1); Sodium 142 mmol/L (135-145); Total Protein 7.7 g/dL (6.5-8.0)
[2024-02-12] MEDS: Piperacillin Sodium/Tazobactam 3.375 GM in 0.9 % Sodium Chloride 50 ML IV (18:08)
[2024-02-12 18:13] LABS: B Type Natriuretic Peptide 13 pg/mL (<100)
[2024-02-12 18:15] LABS: Troponin-I High Sensitivity < 2.7 ng/L (<3.5-35.0)
[2024-02-12 18:29] VITALS: BP 92/52; PULSE 62; RESP 14; O2SAT 95
[2024-02-12] MEDS: Potassium Chloride ER 20 MEQ TAB.ER.PRT 40 MEQ PO (18:30)
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
--- NOTE | 2024-02-12 18:42 | PC.NURSE ---
Security to bedside for exchange underwriting consultant. Security took custody of Pts belongings.
--- NOTE | 2024-02-12 18:43 | PC.NURSE ---
Pt reports Methadone received at [facility] in [place].
[2024-02-12 18:46] LABS: Influenza A PCR NEGATIVE (Negative); Influenza B PCR NEGATIVE (Negative); Resp Syncy Virus RNA Qual PCR NEGATIVE (Negative); SARS COV2 PCR INHOUSE NEGATIVE (Negative)
[2024-02-12] MEDS: Lactated Ringers 1,000 ML 999 ML IV ×2 (18:48→20:55)
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
--- NOTE | 2024-02-12 19:36 | PHA.MEDREC ---
Addendum entered by Jorge Mccallum 02/12/24 19:38: reviewed Original Note: Pharmacy Consult ? Medication Reconciliation Pharmacy has completed the medication reconciliation. Spoke with patient and he was a little out of it nodding in and out but he stated he is only taking Methadone and stated he is on 22mg of it and claims his last dose was today.
[2024-02-12 20:53] VITALS: BP 101/65; PULSE 66; RESP 16; TEMP 36.7; O2SAT 98
[2024-02-12 21:15] VITALS: BMI 30.9
[2024-02-12 21:20] VITALS: BP 112/60; PULSE 71; RESP 18; TEMP 37; O2SAT 94
[2024-02-12] MEDS: Ampicillin Sodium/Sulbactam Na 3 GM in 0.9 % Sodium Chloride 100 ML IV (23:41)
[2024-02-12] MEDS: 0.9 % Sodium Chloride Flush 3 ML SYRINGE IVFLUSH (23:44)
[2024-02-13 03:51] VITALS: BP 100/54; PULSE 64; RESP 18; TEMP 36.5; O2SAT 94
[2024-02-13] MEDS: Ampicillin Sodium/Sulbactam Na 3 GM in 0.9 % Sodium Chloride 100 ML IV ×4 (05:27→23:17)
[2024-02-13 06:07] LABS: MANUAL DIFF FLAG NO
[2024-02-13 06:27] LABS: Anion Gap 9 (12-20); Blood Urea Nitrogen 15 mg/dL (9-16); Calcium 8.3 mg/dL (8.4-10.2); Carbon Dioxide 27 mmol/L (22-29); Chloride 109 mmol/L (96-108); Creatinine Clr Calc Pharmacy 114.1; Estimated Glomerular Filt Rate > 60; Glucose Random 87 mg/dL (60-115); Potassium 4.2 mmol/L (3.3-5.1); Sodium 141 mmol/L (135-145)
[2024-02-13 06:31] LABS: Amphetamine Screen Urine Not Detected (Not Detect); Barbiturates, Urine Not Detected (Not Detect); Benzodiazepines Screen Urine Not Detected (Not Detect); Buprenorphine Scr Not Detected (Not Detect); Cannabinoid Screen Urine Not Detected (Not Detect); Cocaine Screen Urine POSITIVE (Not Detect); Fentanyl, urine POSITIVE (Not Detect); Methadone Screen, Urine Positive (Not Detect); Opiate Screen Urine POSITIVE (Not Detect); Oxycodone Screen Urine Not Detected (Not Detect); Phencyclidine Screen Urine Not Detected (Not Detect)
[2024-02-13 07:02] LABS: Basophils Absolute Auto 0.1 X10*3/uL (0.0-0.2); Basophils Percent Auto 0.3 % (0-2); Eosinophils Absolute Auto 0.3 X10*3/uL (0.0-0.4); Eosinophils Percent Auto 1.3 % (0-4); Hematocrit 36.8 % (42.0-52.0); Hemoglobin 12.1 g/dl (14.0-18.0); Imm Gran Abs Auto 0.09 X10*3/uL (0.00-0.03); Imm Gran Pct Auto 0.4 % (0.0-0.4); Lymphocytes Absolute Auto 2.4 X10*3/uL (1.2-4.9); Lymphocytes Percent Auto 11.9 % (20-40); Mean Corpuscular HGB Conc 32.9 g/dl (31.0-36.0); Mean Corpuscular Hemoglobin 29.6 pg (27.0-33.0); Mean Platelet Volume 10.7 fL (9.4-12.4); Monocytes Absolute Auto 1.1 X10*3/uL (0.1-1.2); Monocytes Percent Auto 5.5 % (2-11); Neutrophils Absolute Auto 16.2 x10*3/uL (2.0-8.3); Neutrophils Percent Auto 80.6 % (45-73); Platelet Count 292 X10*3/uL (160-400); Red Blood Count 4.09 X10*6/uL (4.60-5.80); Red Cell Distribution Width 12.8 % (11.0-16.0); White Blood Count 20.1 X10*3/uL (4.8-10.8)
[2024-02-13 07:13] VITALS: BP 93/53; PULSE 65; RESP 16; TEMP 37.2; O2SAT 92
--- NOTE | 2024-02-13 07:32 | HO.PM.IMPN ---
Subjective Subjective Date of Service: 02/13/24 Interval History: Being followed for aspiration pneumonia and acute toxic metabolic encephalopathy after accidental heroin overdose. Patient awake alert this morning denies fever, no chills, no nausea, no vomiting, no shortness of breath, has been coughing brown-colored phlegm. Review of Systems All other system reviewed and are negative. Physical Exam Vital Signs: Vital Signs: Last Vital Signs Temp 98.9 F 02/13/24 07:13 Pulse 65 02/13/24 07:13 Resp 16 02/13/24 07:13 BP 93/53 L 02/13/24 07:13 Pulse Ox 92 02/13/24 07:13 O2 Del Method Room Air 02/13/24 07:13 O2 Flow Rate 4 02/12/24 20:53 BMI result Body Mass Index 30.9 Const: Other: General resting comfortably in no acute distress. Anicteric sclera Neck no JVD. CVS regular rate rhythm, Respiratory lungs clear to auscultation, no respiratory distress, no rhonchi. Gastrointestinal abdomen soft, non tender, bowel sounds audible Extremities no edema. Neuro non focal Skin no rash Appropriate affect Objective Data Active Medications Acetaminophen (Acetaminophen 325 Mg Tablet) 650 mg PO Q6H PRN PRN Reason: Pain, Mild (Pain Scale 1-3), fever or headache Calcium Carbonate (Calcium Carbonate 750 Mg Tab.Chew) 750 mg PO Q4H PRN PRN Reason: Heartburn Ampicillin Sodium/Sulbactam (Sodium 3 gm/ Sodium Chloride) 100 mls @ 200 mls/hr IV Q6H [facility] Last Infusion: 02/13/24 05:57 Dose: Infused Documented By: AMA Magnesium Hydroxide (Milk Of Magnesia 30 Ml Oral.Susp) 30 ml PO DAILY PRN PRN Reason: Constipation Melatonin (Melatonin 3 Mg Tablet) 6 mg PO BEDTIME PRN PRN Reason: Insomnia Ondansetron HCl (Ondansetron Hcl 4 Mg/2 Ml Vial) 4 mg IVPUSH Q8H PRN PRN Reason: Nausea and Vomiting Sodium Chloride (0.9 % Sodium Chloride Flush 3 Ml Syringe) 3 ml IVFLUSH QSHIFT [facility] Last Admin: 02/12/24 23:44 Dose: 3 ml Documented By: AMA Labs 02/13/24 05:26 02/13/24 05:26 Labs: Laboratory Results - last 24 hr 02/12/24 02/12/24 02/12/24 17:36 17:43 18:01 MCV 87.9 MCH 30.1 MCHC 34.3 RDW 12.4 Plt Count 357 MPV 10.2 Immature Gran % (Auto) 0.5 H Neut % (Auto) 85.4 H Lymph % (Auto) 8.4 L [place] % (Auto) 4.0 Eos % (Auto) 1.5 Baso % (Auto) 0.2 Lymph # (Auto) 1.5 [place] # (Auto) 0.7 Eos # (Auto) 0.3 Baso # (Auto) 0.0 Abs Immat Gran (auto) 0.09 H Absolute Neuts (auto) 15.1 H Absolute Nucleated RBC 0.000 Nucleated RBC % (auto) 0.0 Carboxyhemoglobin % 4.2 Anion Gap 10 L Estim Creat Clear Calc 102.3 Estimated GFR > 60 Random Glucose 132 H Lactic Acid 1.7 Calcium 9.5 D Magnesium 2.5 Total Bilirubin 0.7 Direct Bilirubin 0.2 AST 20 ALT 20 Alkaline Phosphatase 73 Troponin I High Sens < 2.7 B-Natriuretic Peptide 13 Total Protein 7.7 Albumin 4.1 Urine Opiates Screen Ur Buprenorphine Scrn Ur Oxycodone Screen Urine Methadone Screen Urine Fentanyl Screen Ur Barbiturates Screen Ur Phencyclidine Scrn Ur Amphetamines Screen U Benzodiazepines Scrn Urine Cocaine Screen U Marijuana (THC) Screen Influenza Type A (PCR) NEGATIVE Influenza Type B (PCR) NEGATIVE RSV RNA Qual (PCR) NEGATIVE SARS-CoV-2 RNA (RT-PCR) NEGATIVE 02/13/24 02/13/24 05:26 06:00 MCV 90.0 MCH 29.6 MCHC 32.9 RDW 12.8 Plt Count 292 MPV 10.7 Immature Gran % (Auto) 0.4 Neut % (Auto) 80.6 H Lymph % (Auto) 11.9 L [place] % (Auto) 5.5 Eos % (Auto) 1.3 Baso % (Auto) 0.3 Lymph # (Auto) 2.4 [place] # (Auto) 1.1 Eos # (Auto) 0.3 Baso # (Auto) 0.1 Abs Immat Gran (auto) 0.09 H Absolute Neuts (auto) 16.2 H Absolute Nucleated RBC 0.000 Nucleated RBC % (auto) 0.0 Carboxyhemoglobin % Anion Gap 9 L Estim Creat Clear Calc 114.1 Estimated GFR > 60 Random Glucose 87 Lactic Acid Calcium 8.3 L D Magnesium Total Bilirubin Direct Bilirubin AST ALT Alkaline Phosphatase Troponin I High Sens B-Natriuretic Peptide Total Protein Albumin Urine Opiates Screen POSITIVE H Ur Buprenorphine Scrn Not Detected Ur Oxycodone Screen Not Detected Urine Methadone Screen Positive H Urine Fentanyl Screen POSITIVE H Ur Barbiturates Screen Not Detected Ur Phencyclidine Scrn Not Detected Ur Amphetamines Screen Not Detected U Benzodiazepines Scrn Not Detected Urine Cocaine Screen POSITIVE H U Marijuana (THC) Screen Not Detected Influenza Type A (PCR) Influenza Type B (PCR) RSV RNA Qual (PCR) SARS-CoV-2 RNA (RT-PCR) Assessment and Plan (1) Opioid use disorder: Status: Acute (2) Elevated WBC count: Status: Acute (3) Aspiration pneumonia: Status: Acute (4) Hypoxia: Status: Acute (5) Drug overdose: Status: Acute Plan 43-year-old male with pertinent history of opiate use disorder who was brought to the emergency department for evaluation of altered mentation. #. Acute toxic encephalopathy due to accidental heroin overdose: Resolved , follow clinical course #. Acute hypoxemic respiratory failure due to aspiration pneumonia in the setting of above: Leukocytosis likely reactive/due to infection, no sepsis Hypoxia resolved, O2 94% on room air Continue IV Unasyn day 1 , follow blood cultures Supportive care with cough medication #. Polysubstance use disorder: U tox positive for opiates, methadone, fentanyl, cocaine Seen by Addiction Team placed on methadone 30 mg daily # hypotension likely due to opiates treat with IV fluids patient asymptomatic follow BP DVT prophylaxis: lovenox Full code Admit as inpatient and will require continued inpatient hospitalization for IV antibiotics (as above) Quality Stroke Does the patient have a stroke diagnosis?: No VTE Prior VTE?: No VTE Risk Level:: Medical - moderate - high VTE Device Contraindication: Treatment Not Indicated VTE Drug Contraindication: N/A - Med Ordered
[2024-02-13] MEDS: Acetaminophen 325 MG TABLET 650 MG PO (08:11)
[2024-02-13] MEDS: 0.9 % Sodium Chloride 1,000 ML 125 ML IVCONT ×3 (08:12→23:47)
[2024-02-13] MEDS: 0.9 % Sodium Chloride Flush 3 ML SYRINGE IVFLUSH ×2 (08:13→19:52)
--- NOTE | 2024-02-13 09:51 | MHC.CM.PN ---
CM SPOKE TO CONSUMER LOAN OFFICER WHO REPORTS PT NEEDS HIS CELL PHONE TO CONTACT FAMILY AND EMPLOYER TO INFORM THEM OF WHERE HE IS CM CALLED SECURITY WHO WAS UNABLE TO LOCATE THE PHONE INITIALLY CM AND FOAM FABRICATOR WENT TO SECURITY OFFICE AND ANOTHER OFFICER ASSISTED WITH FINDING THE PHONE PATIENT NOW HAS HIS CELL PHONE IN HIS POSSESSION. ALL OTHER ITEMS RETURNED TO MIGUEL
--- NOTE | 2024-02-13 10:02 | HO.ADDICTCON ---
History of Present Illness Date of Service: 02/13/24 Chief Complaint: AMS Reason for Consult: opiate overdose Sources of Information: patient interviewed and chart reviewed HPI Narrative: Patient is a 43 year old male, medically admitted with aspiration pneumonia secondary to opiate overdose requiring narcan. Seen in room 360, he is awake, alert, engaged in interview. He reports that he had been abstinent from opiate use for over a year, and used one bag yesterday. He is engaged in treatment for OUD and is prescribed methadone 22mg daily. He has been tapering his dose for several months ans was previously at 85mg. Last dose reduction was 2 weeks ago. He denies any withdrawal sx associated with dose reduction, with the exception of some difficulty sleeping-which he says is not much . He again states that this was an isolated incident, and he expressed shame and remorse. Provided supportive listening and inquired about patient's recovery supports He states that he has been active in the recovery community, has a horse riding coach or instructor and has been to his local recovery center. He plans on reaching out to and letting them know what occured Discussed current methadone dose and inquired if patient would be interested in increasing dose some, given recent use Discussed continuing to work on recovery capitol and coping strategies. Patient agreeable to increase in dose Brief substance use history obtained -approx 20 years of opiate use -most recent use via inhalation -denies any other substance use or alcohol use -[facility] [place] is home OTP Review of Systems Constitutional: Reports as per HPI Comments: sore around sternum--likely from sternal rub Diagnostics Vital Signs (24Hr): Vital Signs - 24 hr 02/12/24 16:59 02/12/24 17:18 02/12/24 17:42 Temperature Pulse Rate 87 Respiratory Rate 14 13 Blood Pressure 104/61 Pulse Oximetry 86 L 96 Oxygen Delivery Method Room Air Oxymask Oxygen Flow Rate 4 02/12/24 17:42 02/12/24 18:29 02/12/24 20:53 Temperature 98.1 F Pulse Rate 62 66 Respiratory Rate 14 16 Blood Pressure 92/52 L 101/65 Pulse Oximetry 93 95 98 Oxygen Delivery Method Oxymask Oxymask Nasal Cannula Oxymask Oxygen Flow Rate 4 4 4 02/12/24 21:20 02/13/24 03:51 02/13/24 07:13 Temperature 98.6 F 97.7 F 98.9 F Pulse Rate 71 64 65 Respiratory Rate 18 18 16 Blood Pressure 112/60 100/54 L 93/53 L Pulse Oximetry 94 94 92 Oxygen Delivery Method Room Air Room Air Room Air Oxygen Flow Rate BMI result Body Mass Index 30.9 Labs 02/13/24 05:26 02/13/24 05:26 Labs: Laboratory Results - last 48 hr 02/12/24 02/12/24 02/12/24 17:36 17:43 18:01 WBC 17.7 H RBC 4.71 Hgb 14.2 Hct 41.4 L MCV 87.9 MCH 30.1 MCHC 34.3 RDW 12.4 Plt Count 357 MPV 10.2 Immature Gran % (Auto) 0.5 H Neut % (Auto) 85.4 H Lymph % (Auto) 8.4 L [place] % (Auto) 4.0 Eos % (Auto) 1.5 Baso % (Auto) 0.2 Lymph # (Auto) 1.5 [place] # (Auto) 0.7 Eos # (Auto) 0.3 Baso # (Auto) 0.0 Abs Immat Gran (auto) 0.09 H Absolute Neuts (auto) 15.1 H Absolute Nucleated RBC 0.000 Nucleated RBC % (auto) 0.0 Carboxyhemoglobin % 4.2 Sodium 142 Potassium 3.1 L Chloride 107 Carbon Dioxide 28 Anion Gap 10 L BUN 19 H Creatinine 0.96 Estim Creat Clear Calc 102.3 Estimated GFR > 60 Random Glucose 132 H Lactic Acid 1.7 Calcium 9.5 D Magnesium 2.5 Total Bilirubin 0.7 Direct Bilirubin 0.2 AST 20 ALT 20 Alkaline Phosphatase 73 Troponin I High Sens < 2.7 B-Natriuretic Peptide 13 Total Protein 7.7 Albumin 4.1 Urine Opiates Screen Ur Buprenorphine Scrn Ur Oxycodone Screen Urine Methadone Screen Urine Fentanyl Screen Ur Barbiturates Screen Ur Phencyclidine Scrn Ur Amphetamines Screen U Benzodiazepines Scrn Urine Cocaine Screen U Marijuana (THC) Screen Influenza Type A (PCR) NEGATIVE Influenza Type B (PCR) NEGATIVE RSV RNA Qual (PCR) NEGATIVE SARS-CoV-2 RNA (RT-PCR) NEGATIVE 02/13/24 02/13/24 05:26 06:00 WBC 20.1 H RBC 4.09 L Hgb 12.1 L Hct 36.8 L MCV 90.0 MCH 29.6 MCHC 32.9 RDW 12.8 Plt Count 292 MPV 10.7 Immature Gran % (Auto) 0.4 Neut % (Auto) 80.6 H Lymph % (Auto) 11.9 L [place] % (Auto) 5.5 Eos % (Auto) 1.3 Baso % (Auto) 0.3 Lymph # (Auto) 2.4 [place] # (Auto) 1.1 Eos # (Auto) 0.3 Baso # (Auto) 0.1 Abs Immat Gran (auto) 0.09 H Absolute Neuts (auto) 16.2 H Absolute Nucleated RBC 0.000 Nucleated RBC % (auto) 0.0 Carboxyhemoglobin % Sodium 141 Potassium 4.2 D Chloride 109 H Carbon Dioxide 27 Anion Gap 9 L BUN 15 Creatinine 0.85 Estim Creat Clear Calc 114.1 Estimated GFR > 60 Random Glucose 87 Lactic Acid Calcium 8.3 L D Magnesium Total Bilirubin Direct Bilirubin AST ALT Alkaline Phosphatase Troponin I High Sens B-Natriuretic Peptide Total Protein Albumin Urine Opiates Screen POSITIVE H Ur Buprenorphine Scrn Not Detected Ur Oxycodone Screen Not Detected Urine Methadone Screen Positive H Urine Fentanyl Screen POSITIVE H Ur Barbiturates Screen Not Detected Ur Phencyclidine Scrn Not Detected Ur Amphetamines Screen Not Detected U Benzodiazepines Scrn Not Detected Urine Cocaine Screen POSITIVE H U Marijuana (THC) Screen Not Detected Influenza Type A (PCR) Influenza Type B (PCR) RSV RNA Qual (PCR) SARS-CoV-2 RNA (RT-PCR) Imaging Radiology Impressions: ITS Impressions Chest X-Ray 02/12/24 17:12 IMPRESSION: Faint hazy opacification of the right lung base may represent subsegmental atelectasis although early infectious/inflammatory processes could have a similar appearance in the appropriate clinical setting. No additional dense focal consolidative process. Electronically signed by: James Hauser DO 02/12/2024 07:[address] [facility] Mental Status Exam Mental Status Exam Level of Consciousness: Awake, Appropriate and Alert Patient Behavior: Appropriate and Talkative Mood Description: Calm Affect Description: Calm Speech Pattern: Clear Medications Medications Current Medications Acetaminophen (Acetaminophen 325 Mg Tablet) 650 mg PO Q6H PRN PRN Reason: Pain, Mild (Pain Scale 1-3), fever or headache Last Admin: 02/13/24 08:11 Dose: 650 mg Calcium Carbonate (Calcium Carbonate 750 Mg Tab.Chew) 750 mg PO Q4H PRN PRN Reason: Heartburn Ampicillin Sodium/Sulbactam (Sodium 3 gm/ Sodium Chloride) 100 mls @ 200 mls/hr IV Q6H [facility] Last Infusion: 02/13/24 05:57 Dose: Infused Sodium Chloride (Ns) 1,000 mls @ 125 mls/hr IVCONT .Q8H [facility] Last Admin: 02/13/24 08:12 Dose: 125 mls/hr Magnesium Hydroxide (Milk Of Magnesia 30 Ml Oral.Susp) 30 ml PO DAILY PRN PRN Reason: Constipation Melatonin (Melatonin 3 Mg Tablet) 6 mg PO BEDTIME PRN PRN Reason: Insomnia Methadone HCl (Methadone Hcl 20 Mg/2 Ml Oral.Conc) 30 mg PO DAILY@0800 [facility] Ondansetron HCl (Ondansetron Hcl 4 Mg/2 Ml Vial) 4 mg IVPUSH Q8H PRN PRN Reason: Nausea and Vomiting Sodium Chloride (0.9 % Sodium Chloride Flush 3 Ml Syringe) 3 ml IVFLUSH QSHIFT [facility] Last Admin: 02/13/24 08:13 Dose: 3 ml Allergies Allergies Allergy/AdvReac Type Severity Reaction Status Date / Time No Known Allergies Allergy Verified 02/12/24 17:05 [No Known Allergies*] Assessment & Plan Assessment & Plan (1) Opioid use disorder: Status: Acute Code(s): F11.90 - Opioid use, unspecified, uncomplicated Assessment and Plan: overdose prevention discussion take home narcan methadone dose increased to 30mg daily encouraged to reach out to recovery supports regarding OD Total time managing care of this patient today _35___ minutes. PMFSH Past Medical History Medical History Cocaine use Heroin use Suicidal ideation No known health problems Social History Social History Household Members: Friend(s) Housing: House Do you presently have visiting nurse or other home services: No Comment: pt sleeping Patient Tobacco Use Status: Current everyday Tobacco user Tobacco use type: Cigarette Cigarettes Per Day: 10 Years Smoked: 20 Smoked in Last 30 Days: Yes Patient Interested in Nicotine Replacement: No Patient Given Instructions on How to Stop Smoking: No Second Hand Smoke Exposure: No Use of substances other than those prescribed or required for medical reasons: Yes Substance Use Type: Heroin Substance Use Frequency: Recent Binge Last Used Substance: Just Prior to Admission Currently Displaying Signs/Symptoms of Drug Intoxication Withdrawal: No Any prior treatment program specific to substance use: Yes (methadone) Have you been hit, kicked, punched, or otherwise hurt by someone within the past year? If so, by whom?: No Do you feel safe in your current relationship?: No Current Relationship Is there a partner from a previous relationship who is making you feel unsafe now?: No Advance Directives: Yes Advance Directives on File: Yes Advance Directives Date on File: 02/29/20 Do you have a plan to hurt others: No Plan Recently lost weight without trying: No How much weight loss: Not applicable Eating poorly because of decreased appetite: No Nutrition screen score: 0 Nutrition Risks: No Nutritional Risk Poor oral hygiene: No service: No Current occupational status: employed
[2024-02-13] MEDS: methADONE HCl 20 MG/2 ML ORAL.CONC 30 MG PO (10:30)
--- NOTE | 2024-02-13 11:17 | MHC.CM.PN ---
HEAD CD REACTOR OPERATOR AND CM MET WITH PT AT BEDSIDE. PT LIVES ALONE IN APARTMENT PT DOES NOT RECEIVE SERVICES PT DOES NOT USE DME PT'S HCP IS FATHER, YVETTE GUEVARA. P:[phone] PT DOES NOT HAVE PCP PT'S INSURANCE IS [employer] PT WILL DC HOME NO SERVICES WITH PRIVATE TRANSPORT
[2024-02-13] MEDS: Enoxaparin Sodium 40 MG/0.4 ML SYRINGE SUBCUT (12:49)
[2024-02-13 15:09] VITALS: BP 105/53; PULSE 61; RESP 16; TEMP 36.2; O2SAT 94
[2024-02-13] MEDS: guaiFENesin DM 200/20/10 ML 10 ML SYRUP PO ×2 (15:40→19:52)
[2024-02-13 19:05] VITALS: BP 103/52; PULSE 64; RESP 15; TEMP 36.8; O2SAT 96
[2024-02-13] MEDS: Albuterol/Iprat 2.5/0.5MG 3 ML AMPUL.NEB INHALE (22:09)
[2024-02-13 22:10] VITALS: PULSE 62; RESP 18; O2SAT 95
[2024-02-14 03:40] VITALS: BP 106/62; PULSE 50; RESP 18; TEMP 36.6; O2SAT 95
[2024-02-14] MEDS: Ampicillin Sodium/Sulbactam Na 3 GM in 0.9 % Sodium Chloride 100 ML IV ×2 (05:55→11:37)
[2024-02-14 06:16] LABS: Hematocrit 34.3 % (42.0-52.0); Hemoglobin 11.1 g/dl (14.0-18.0); Mean Corpuscular HGB Conc 32.4 g/dl (31.0-36.0); Mean Corpuscular Hemoglobin 29.4 pg (27.0-33.0); Mean Corpuscular Volume 90.7 fL (80.0-98.0); Mean Platelet Volume 10.5 fL (9.4-12.4); Platelet Count 231 X10*3/uL (160-400); Red Blood Count 3.78 X10*6/uL (4.60-5.80); Red Cell Distribution Width 12.8 % (11.0-16.0); White Blood Count 9.5 X10*3/uL (4.8-10.8)
[2024-02-14 06:34] LABS: Anion Gap 13 (12-20); Blood Urea Nitrogen 11 mg/dL (9-16); Calcium 7.9 mg/dL (8.4-10.2); Carbon Dioxide 22 mmol/L (22-29); Chloride 111 mmol/L (96-108); Creatinine Clr Calc Pharmacy 140.5; Estimated Glomerular Filt Rate > 60; Glucose Random 99 mg/dL (60-115); Potassium 3.8 mmol/L (3.3-5.1); Sodium 142 mmol/L (135-145)
[2024-02-14] MEDS: methADONE HCl 20 MG/2 ML ORAL.CONC 30 MG PO (07:41)
[2024-02-14] MEDS: 0.9 % Sodium Chloride 1,000 ML 125 ML IVCONT (07:41)
[2024-02-14] MEDS: 0.9 % Sodium Chloride Flush 3 ML SYRINGE IVFLUSH (07:42)
[2024-02-14 07:47] VITALS: BP 109/58; PULSE 58; RESP 16; TEMP 36.4; O2SAT 99
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
[2024-02-14 11:11] LABS: HBS Num1 0.32 mIU/mL (0-7.99); HBc Num1 0.12 S/CO (0.00-0.79); HIV AB/AG Nonreactive (Nonreactive); HIV Num 1 0.06 S/CO (0.00-0.99); Hepatitis B Core Antibody Nonreactive (Nonreactive); Hepatitis B Surface Antigen Negative (Negative); ~HepC Num1 0.09 S/CO (0.00-0.79); ~Hepatitis B Surface Antibody NONREACTIVE (Nonreactive); ~Hepatitis C Antibody Nonreactive (Nonreactive)
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
--- NOTE | 2024-02-14 13:32 | MHC.CM.PN ---
PT DCD HOME SELF CARE
== END 2024-02-14 13:53 | disposition home or self-care (01) | DRG 816 ==
LOC: HO.ED 18:51 → HO.EDOVER 19:42 → HO.S3 20:20
PROVIDERS: Hospitalist; Admitting Provider Student in an Organized Health Care Education/Training Program; Emergency Provider Emergency Medicine; Visit Provider Family Medicine
DX: T40.1X1A Poisoning by heroin, accidental (unintentional), initial encounter (principal); J69.0 Pneumonitis due to inhalation of food and vomit; G92.8 Other toxic encephalopathy; I95.2 Hypotension due to drugs; F11.20 Opioid dependence, uncomplicated; F17.210 Nicotine dependence, cigarettes, uncomplicated; Z71.6 Tobacco abuse counseling; Z20.822 Contact with and (suspected) exposure to COVID-19; F19.90 Other psychoactive substance use, unspecified, uncomplicated
CPT/HCPCS: 0241U; 36415; 71045; 80048; 80076; 80307; 82375; 83605; 83735; 83880; 84484; 85025; 85027; 86704; 86706; 86803; 87040; 87340; 87389; 93005; 94640; 99285; J0295; J1650; J2543; J7120

== ENCOUNTER → 2024-02-12 17:12 | Outpatient (BNV) | payer OTHER, SELFPAY | PROVIDERS: Admitting Provider Student in an Organized Health Care Education/Training Program; Emergency Provider Emergency Medicine; Visit Provider Internal Medicine | DX: T50.901A Poisoning by unspecified drugs, medicaments and biological substances, accidental (unintentional), initial encounter (principal) | CPT/HCPCS: 93010 ==

== ENCOUNTER → 2024-02-12 18:17 | Outpatient (BNV) | payer OTHER, SELFPAY | PROVIDERS: Emergency Provider Emergency Medicine; Visit Provider Student in an Organized Health Care Education/Training Program | DX: J69.0 Pneumonitis due to inhalation of food and vomit (principal); F11.90 Opioid use, unspecified, uncomplicated; D72.829 Elevated white blood cell count, unspecified; R09.02 Hypoxemia; T50.901A Poisoning by unspecified drugs, medicaments and biological substances, accidental (unintentional), initial encounter | CPT/HCPCS: 99223; 99233; 99239 ==

== ENCOUNTER → 2024-02-12 19:33 | Outpatient (BNV) | payer OTHER, SELFPAY | PROVIDERS: Admitting Provider Student in an Organized Health Care Education/Training Program; Emergency Provider Emergency Medicine; Visit Provider Nurse Practitioner Psychiatric/Mental Health | DX: F11.90 Opioid use, unspecified, uncomplicated (principal) | CPT/HCPCS: 99232 ==